=== PATIENT | female | born 2000 | race Caucasian/White ===

== ENCOUNTER 2025-10-02 09:57 | Emergency (ER) | payer OTHER, BC, SELFPAY ==
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
[2025-10-02 10:01] VITALS: BP 162/90; PULSE 82; RESP 16; O2SAT 100
[2025-10-02 10:07] VITALS: TEMP 36.6
[2025-10-02 10:10] VITALS: BP 162/90; PULSE 77; RESP 20; O2SAT 100
[2025-10-02] MEDS: ACETAMINOPHEN 500 MG TABLET 1000 MG PO (11:31)
[2025-10-02 11:33] VITALS: BP 139/96; PULSE 71; RESP 18; O2SAT 100
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
[2025-10-02 12:42] VITALS: BP 126/75; PULSE 67; RESP 16; O2SAT 100
== END 2025-10-02 12:44 | disposition home or self-care (01) ==
DX: R51.9 Headache, unspecified (principal); S19.9XXA Unspecified injury of neck, initial encounter; V47.5XXA Car driver injured in collision with fixed or stationary object in traffic accident, initial encounter
CPT/HCPCS: 70450; 72125; 99284; A9270; L0140